=== PATIENT | male | born 2000 | race Caucasian/White ===

== ENCOUNTER 2022-08-17 22:13 | Emergency (ER) | payer BC, SELFPAY ==
--- NOTE | ~2022-08-17 | XR_ITS ---
XR hand RT min 3V 08/17/2022 23:18 INDICATION: Right hand pain. Laceration. PROCEDURE: 3 views right hand COMPARISON: No prior studies for comparison. FINDINGS: Fracture, dislocation or subluxation is not identified. The soft tissues appear within norm al limits. No foreign bodies are identified. IMPRESSION: 1: NO ACUTE BONE OR JOINT ABNORMALITY IDENTIFIED. Reviewed, dictated and finalized at location A. DENSITY PRESS OPERATOR
[2022-08-17 22:16] VITALS: BP 132/65; PULSE 95; RESP 14; TEMP 36.2; O2SAT 100
[2022-08-18] MEDS: LIDOCAINE HCL 1% LOCAL INJ 20 ML VIAL (00:01)
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
[2022-08-18 00:13] VITALS: BP 113/75; PULSE 79; RESP 16; O2SAT 99
[2022-08-18] MEDS: TETANUS,DIPHTHERIA,AC PERTUSSIS ADULT (0.5 ML) BOOSTRIX IM (00:39)
== END 2022-08-18 00:47 | disposition home or self-care (01) ==
PROVIDERS: Emergency Provider Physician Assistant
DX: S61.411A Laceration without foreign body of right hand, initial encounter (principal); Z23 Encounter for immunization; W25.XXXA Contact with sharp glass, initial encounter
CPT/HCPCS: 12001; 73130; 90471; 90715; 99283